=== PATIENT | male | born 1980 | race Caucasian/White ===

== ENCOUNTER 2023-01-11 09:05 | Day surgery (SDC) | payer OTHER ==
[2023-01-07 13:45] VITALS: BMI 30.5
[2023-01-11 11:08] VITALS: PULSE 50; RESP 16; TEMP 97.7
[2023-01-11 11:31] VITALS: BP 109/65
== END 2023-01-11 11:30 | disposition home or self-care (01) ==
LOC: FASU-ENDO 09:05
PROVIDERS: ATTEND Internal Medicine Gastroenterology
PROC: 0DJD8ZZ Inspection of Lower Intestinal Tract, Via Natural or Artificial Opening Endoscopic (ICD-10-PCS; principal; 2023-01-11 10:30)
DX: K59.00 Constipation, unspecified (principal)